=== PATIENT | female | born 1950 | race Caucasian/White ===

== ENCOUNTER 2019-08-28 15:06 | Emergency (ER) | payer MEDICARE ==
--- NOTE | 2019-08-28 16:07 | EDM.PDOC ---
ED HPI GENERAL MEDICAL PROBLEM - General Chief Complaint: Fever Stated Complaint: LOW BP Time Seen by Provider: 08/28/19 16:07 Source of Information: Reports: Patient History Limitations: Reports: Other (confusion, soft spoken and often does not understand question. provides history) - History of Present Illness INITIAL COMMENTS - FREE TEXT/NARRATIVE: Patient present to ER with for evaluation of low blood pressure. Patient in on oral blood pressure medications which she took today. has noted slight intermittent fevers over the last week. Patient has not had a cough or chest pain. Patient has had diarrhea recently. Patient has a history of chronic renal insufficiency and i followed by providers. Appetite has been decreased over the last week. Patient drinks diet Pepsi and very rare glass of wine on Holidays. Limited history available from and is fairly non verbal. denies Pain Score (Numeric/FACES): 0 - Related Data Allergies Allergy/AdvReac Type Severity Reaction Status Date / Time Penicillins Allergy Rash Verified 08/28/19 16:10 Home Meds: Home Meds Aspirin [Danielle Chewable] 162 mg PO DAILY 08/28/19 [History] Cholecalciferol (Vitamin D3) [Vitamin D3] 2,000 unit PO DAILY 08/28/19 [History] Famotidine 20 mg PO DAILY 08/28/19 [History] Levothyroxine [Synthroid] 50 mcg PO DAILY 08/28/19 [History] Losartan Potassium 1 tab PO DAILY 08/28/19 [History] Multivitamin with Minerals [Multivitamins with Minerals] 1 each PO DAILY 08/28/19 [History] atorvaSTATin Calcium [Atorvastatin Calcium] 1 tab PO BEDTIME 08/28/19 [History] carvediloL [Carvedilol] 1 tab PO BID 08/28/19 [History] Past Medical History HEENT History: Reports: None Cardiovascular History: Reports: Hypertension Respiratory History: Reports: None Gastrointestinal History: Reports: None Genitourinary History: Reports: None [employer] History: Reports: Musculoskeletal History: Reports: None Neurological History: Reports: CVA, Other (See Below) Other Neuro History: Two previous CVAs Psychiatric History: Reports: None Endocrine/Metabolic History: Reports: None Hematologic History: Reports: None Immunologic History: Reports: None Oncologic (Cancer) History: Reports: None Dermatologic History: Reports: None - Past Surgical History Head Surgeries/Procedures: Reports: None ED ROS GENERAL - Review of Systems Review Of Systems: Comprehensive ROS is negative, except as noted in HPI. ED EXAM, GENERAL - Physical Exam Exam: See Below Exam Limited By: Altered Mental Status (poor historian and limited verbal communications) General Appearance: Alert, WD/WN, Anxious, Mild Distress Eye Exam: Bilateral Eye: EOMI, Normal Inspection Ears: Hearing Loss (poor understanding and verbal response ) Nose: Normal Inspection Throat/Mouth: Normal Voice, No Airway Compromise, Other (dry mucus membrane) Neck: Normal Inspection, Supple, Non-Tender Respiratory/Chest: Lungs Clear, Normal Breath Sounds (poor air movement due to respiratory effort) Cardiovascular: Normal Peripheral Pulses (faint ), Regular Rate, Rhythm, No Murmur GI/Abdominal: Normal Bowel Sounds, Soft. No: Non-Tender (diffuse mild discomfort noted. No focal acute pain. ) (Female) Exam: Deferred Rectal (Female) Exam: Deferred Back Exam: CVA Tenderness (R), CVA Tenderness (L) (slight ) Extremities: No: Normal Capillary Refill Neurological: Alert, Oriented, No Motor/Sensory Deficits Psychiatric: Flat Affect Course - Vital Signs Last Recorded V/S: Last Vital Signs Temp 36.6 C 08/28/19 16:09 Pulse 61 08/28/19 16:09 Resp 18 08/28/19 16:09 BP 115/64 08/28/19 17:06 Pulse Ox 97 08/28/19 16:09 - Orders/Labs/Meds Orders: Active Orders 24 hr Category Date Time Status Cardiac Monitoring [RC] .As Directed Care 08/28/19 16:54 Active Peripheral IV Care [RC] . DIRECTED Care 08/28/19 16:55 Active CULTURE BLOOD [BC] Urgent Lab 08/28/19 17:10 Received CULTURE BLOOD [BC] Urgent Lab 08/28/19 17:15 Received CULTURE URINE [RM] Stat Lab 08/28/19 18:37 Received Sodium Chloride 0.9% [Normal Saline] 1,000 ml Med 08/28/19 17:00 Active IV ASDIRECTED Sodium Chloride 0.9% [Normal Saline] 1,000 ml Med 08/28/19 19:45 Active IV ASDIRECTED Sodium Chloride 0.9% [Saline Flush] Med 08/28/19 16:54 Active 10 ml FLUSH ASDIRECTED PRN Blood Culture x2 Reflex Set [OM.PC] Urgent Oth 08/28/19 16:54 Ordered Peripheral IV Insertion Adult [OM.PC] Urgent Oth 08/28/19 16:54 Ordered Medication Orders Sodium Chloride (Normal Saline) 1,000 mls @ 500 mls/hr IV ASDIRECTED SACHIN Last Admin: 08/28/19 17:20 Dose: 500 mls/hr Documented by: GRACIELA Sodium Chloride (Normal Saline) 1,000 mls @ 125 mls/hr IV ASDIRECTED SACHIN Last Admin: 08/28/19 19:37 Dose: 125 mls/hr Documented by: KENNEDY Sodium Chloride (Saline Flush) 10 ml FLUSH ASDIRECTED PRN PRN Reason: Keep Vein Open Last Admin: 08/28/19 19:22 Dose: 10 ml Documented by: DENILSON Labs: Laboratory Tests 08/28/19 08/28/19 08/28/19 Range/Units 17:10 17:10 17:10 WBC 6.6 (4.5-11.0) K/uL RBC 4.23 (3.30-5.50) M/uL Hgb 12.9 (12.0-15.0) g/dL Hct 38.5 (36.0-48.0) % MCV 91 (80-98) fL MCH 31 (27-31) pg MCHC 34 (32-36) % Plt Count 42 L (150-400) K/uL Add Manual Diff Yes Neutrophils % (Manual) 59 (36-66) % Band Neutrophils % 2 L (5-11) % Lymphocytes % (Manual) 22 L (24-44) % Monocytes % (Manual) 17 H (2-6) % Sodium 131 L (140-148) mmol/L Potassium 3.7 (3.6-5.2) mmol/L Chloride 94 L (100-108) mmol/L Carbon Dioxide 29 (21-32) mmol/L Anion Gap 11.7 (5.0-14.0) mmol/L BUN 63 H (7-18) mg/dL Creatinine 2.6 H (0.6-1.0) mg/dL Est Cr Clr Drug Dosing 14.25 mL/min Estimated GFR (MDRD) 18 L (>60) Glucose 111 H (74-106) mg/dL Lactic Acid 1.0 (0.4-2.0) mmol/L Calcium 8.9 (8.5-10.1) mg/dL Total Bilirubin 0.5 (0.2-1.0) mg/dL Direct Bilirubin 0.14 (0.0-0.2) mg/dL Indirect Bilirubin 0.36 AST 142 H (15-37) U/L ALT 51 (12-78) U/L Alkaline Phosphatase 57 (46-116) U/L Ammonia (11-32) mmol/L Lactate Dehydrogenase (82-234) U/L Total Protein 7.7 (6.4-8.2) g/dL Albumin 3.2 L (3.4-5.0) g/dL Globulin 4.5 H (2.3-3.5) g/dL Albumin/Globulin Ratio 0.7 L (1.2-2.2) Lipase 1351 H (73-393) U/L Urine Color (YELLOW) Urine Appearance (CLEAR) Urine pH (5.0-8.0) Ur Specific [place] (1.008-1.030) Urine Protein (NEGATIVE) mg/dL Urine Glucose (UA) (NEGATIVE) mg/dL Urine Ketones (NEGATIVE) mg/dL Urine Occult Blood (NEGATIVE) Urine Nitrite (NEGATIVE) Urine Bilirubin (NEGATIVE) Urine Urobilinogen (0.2-1.0) EU/dL Ur Leukocyte Esterase (NEGATIVE) Urine RBC (0-5) Urine WBC (0-5) Ur Epithelial Cells Amorphous Sediment Urine Bacteria Urine Mucus Urine Other Ethyl Alcohol mg/dL 08/28/19 08/28/19 08/28/19 Range/Units 17:10 17:10 17:59 WBC (4.5-11.0) K/uL RBC (3.30-5.50) M/uL Hgb (12.0-15.0) g/dL Hct (36.0-48.0) % MCV (80-98) fL MCH (27-31) pg MCHC (32-36) % Plt Count (150-400) K/uL Add Manual Diff Neutrophils % (Manual) (36-66) % Band Neutrophils % (5-11) % Lymphocytes % (Manual) (24-44) % Monocytes % (Manual) (2-6) % Sodium (140-148) mmol/L Potassium (3.6-5.2) mmol/L Chloride (100-108) mmol/L Carbon Dioxide (21-32) mmol/L Anion Gap (5.0-14.0) mmol/L BUN (7-18) mg/dL Creatinine (0.6-1.0) mg/dL Est Cr Clr Drug Dosing mL/min Estimated GFR (MDRD) (>60) Glucose (74-106) mg/dL Lactic Acid (0.4-2.0) mmol/L Calcium (8.5-10.1) mg/dL Total Bilirubin (0.2-1.0) mg/dL Direct Bilirubin (0.0-0.2) mg/dL Indirect Bilirubin AST (15-37) U/L ALT (12-78) U/L Alkaline Phosphatase (46-116) U/L Ammonia < 10 L (11-32) mmol/L Lactate Dehydrogenase 802 H (82-234) U/L Total Protein (6.4-8.2) g/dL Albumin (3.4-5.0) g/dL Globulin (2.3-3.5) g/dL Albumin/Globulin Ratio (1.2-2.2) Lipase (73-393) U/L Urine Color (YELLOW) Urine Appearance (CLEAR) Urine pH (5.0-8.0) Ur Specific [place] (1.008-1.030) Urine Protein (NEGATIVE) mg/dL Urine Glucose (UA) (NEGATIVE) mg/dL Urine Ketones (NEGATIVE) mg/dL Urine Occult Blood (NEGATIVE) Urine Nitrite (NEGATIVE) Urine Bilirubin (NEGATIVE) Urine Urobilinogen (0.2-1.0) EU/dL Ur Leukocyte Esterase (NEGATIVE) Urine RBC (0-5) Urine WBC (0-5) Ur Epithelial Cells Amorphous Sediment Urine Bacteria Urine Mucus Urine Other Ethyl Alcohol < 3 mg/dL 08/28/19 Range/Units 18:37 WBC (4.5-11.0) K/uL RBC (3.30-5.50) M/uL Hgb (12.0-15.0) g/dL Hct (36.0-48.0) % MCV (80-98) fL MCH (27-31) pg MCHC (32-36) % Plt Count (150-400) K/uL Add Manual Diff Neutrophils % (Manual) (36-66) % Band Neutrophils % (5-11) % Lymphocytes % (Manual) (24-44) % Monocytes % (Manual) (2-6) % Sodium (140-148) mmol/L Potassium (3.6-5.2) mmol/L Chloride (100-108) mmol/L Carbon Dioxide (21-32) mmol/L Anion Gap (5.0-14.0) mmol/L BUN (7-18) mg/dL Creatinine (0.6-1.0) mg/dL Est Cr Clr Drug Dosing mL/min Estimated GFR (MDRD) (>60) Glucose (74-106) mg/dL Lactic Acid (0.4-2.0) mmol/L Calcium (8.5-10.1) mg/dL Total Bilirubin (0.2-1.0) mg/dL Direct Bilirubin (0.0-0.2) mg/dL Indirect Bilirubin AST (15-37) U/L ALT (12-78) U/L Alkaline Phosphatase (46-116) U/L Ammonia (11-32) mmol/L Lactate Dehydrogenase (82-234) U/L Total Protein (6.4-8.2) g/dL Albumin (3.4-5.0) g/dL Globulin (2.3-3.5) g/dL Albumin/Globulin Ratio (1.2-2.2) Lipase (73-393) U/L Urine Color Yellow (YELLOW) Urine Appearance Slightly cloudy A (CLEAR) Urine pH 5.5 (5.0-8.0) Ur Specific [place] 1.020 (1.008-1.030) Urine Protein 100 H (NEGATIVE) mg/dL Urine Glucose (UA) Negative (NEGATIVE) mg/dL Urine Ketones Negative (NEGATIVE) mg/dL Urine Occult Blood Moderate H (NEGATIVE) Urine Nitrite Negative (NEGATIVE) Urine Bilirubin Negative (NEGATIVE) Urine Urobilinogen 0.2 (0.2-1.0) EU/dL Ur Leukocyte Esterase Trace H (NEGATIVE) Urine RBC 10-20 H (0-5) Urine WBC 5-10 H (0-5) Ur Epithelial Cells Moderate Amorphous Sediment Many Urine Bacteria Many Urine Mucus Moderate Urine Other See note Ethyl Alcohol mg/dL Meds: Medications Generic Name Dose Route Start Last Admin Trade Name Freq PRN Reason Stop Dose Admin Sodium Chloride 1,000 mls @ 500 mls/hr 08/28/19 17:00 08/28/19 17:20 Normal Saline IV 500 mls/hr ASDIRECTED SACHIN Administration Sodium Chloride 1,000 mls @ 125 mls/hr 08/28/19 19:45 08/28/19 19:37 Normal Saline IV 125 mls/hr ASDIRECTED SACHIN Administration Sodium Chloride 10 ml 08/28/19 16:54 08/28/19 19:22 Saline Flush FLUSH 10 ml ASDIRECTED PRN Administration Keep Vein Open - Re-Assessments/Exams Free Text/Narrative Re-Assessment/Exam: Discussed results regarding laboratory studies which show concern for possible pancreatitis which may be the cause of low grade intermittent fevers, nausea, decreased appetite, low blood pressure, diarrhea and vague abdominal pain. CT Abd/Pelvis ordered w/o IV contrast ordered due to poor renal function. Patient declined needing medication for nausea or pain at time of assessment. Daughter, whom is an RN, on 's cell phone and aware of ER visit evaluation and plan for further evaluation with CT scan. 08/28/19 18:[address] results with patient and which show not acute intraabdominal findings to explain symptoms. I believe patient has pancreatitis with test results and symptoms. Patient was offered admission to keep NPO, IVF and pain management bu patient and declined. Patient was offered OP pain medications and nausea medications for home use but declined. Discussed self/home care treatment for acute pancreatitis. Recommended clinic follow-up early next week with stool sample/studies recommended. and patient are welcome to return if symptoms worsen, new concerns or would like admission for IVF support and pain management. 08/28/19 19:58 Departure - Departure Time of Disposition: 20:04 Disposition: Home, Self-Care 01 Clinical Impression: Pancreatitis, acute - Discharge Information Instructions: Acute Pancreatitis, Chronic Pancreatitis Referrals: PCP,None [Primary Care Provider] - Forms: ED Department Discharge Additional Instructions: 1. CLEAR LIQUID DIET UNTIL SYMPTOMS RESOLVED/IMPROVED then BRAT Diet (Banana, Rice, Apple sauce, dry toast or plant crackers then ADVANCE TO BLAND DIET TOLERATED. 2. INCREASE FLUID INTAKE. 3. FOLLOW INFORMATION GIVEN. 4. SEE PCP IN 3-4 DAYS FOR RE-CHECK TO DISCUSS SYMPTOMS AND STOOL STUDY IF DIARRHEA CONTINUES> 5. Return for repeat evaluation if increase, changes, new or worsen symptoms. Ultrasound Abd RUQ may be recommended if continue symptoms or concerns THE DISCHARGE INSTRUCTIONS ARE INTENDED A COMPLEMENT TO AND NOT A REPLACEMENT FOR THE VERBAL INSTRUCTIONS THAT I HAVE PROVIDED YOU TODAY. AFTER GOING OVER THE PLAN OF CARE TONIGHT AND PROVIDING YOU WITH THE VERBAL INSTRUCTIONS AT DISCHARGE YOU HAVE HAD THE OPPORTUNITY TO ASK FURTHER QUESTIONS AND TO CLARIFY UNCERTAINTIES. THANK YOU FOR ALLOWING US TO ASSIST WITH YOUR MEDICAL CONCERNS AND NEEDS. Acute Pancreatitis: What is acute pancreatitis? Pancreatitis is a condition that occurs when the pancreas, an organ behind the stomach, becomes swollen and painful. The pancreas produces digestive enzymes and insulin. The digestive enzymes flow into the small intestine to help break down food. Insulin is released into the blood to control the level of sugar (glucose) in the blood. Pancreatitis can be acute or chronic. Acute pancreatitis occurs as one sudden episode. After acute pancreatitis the pancreas usually returns to its normal condition. Chronic pancreatitis means ongoing or repeated bouts of pancreatitis in which there is permanent damage to the pancreas. How does it occur? The causes of acute pancreatitis are not completely understood. About half of the people who have pancreatitis have gallstones. Gallstones can block the flow of pancreatic secretions into the intestines. Drinking too much alcohol can lead to pancreatitis. Less frequent causes are some medicines, stomach or duodenal ulcers, surgery, or injury, such as being hit in the stomach. Sometimes very high levels of blood fats (triglycerides) cause pancreatitis. What are the symptoms? The main symptom is severe pain in the middle of your upper abdomen. The pain: often occurs 12 to 24 hours after a large meal or heavy drinking spreads to your back and chest is steady and sharp gets worse when you move feels better when you sit or lean forward usually makes you vomit. Other symptoms are: fever bloating. In severe cases, you may have signs of shock, including: restlessness a fast heartbeat lightheadedness confusion a cold sweat. If you have abdominal pain and any of these signs of shock, get emergency care or call 911 right away. How is it diagnosed? Your health care provider will ask about your medical history, particularly about how much alcohol you drink and whether you have had gallstones. Your provider will ask about your symptoms and examine you. You may have the following tests: blood tests urine tests x-rays of your abdomen and chest ultrasound exam of the pancreas and gallbladder CT scan of the pancreas ERCP, which is a way of looking at your pancreas through a slim flexible tube called an endoscope, which is passed through your mouth and stomach to where your pancreas and intestines are connected. How is it treated? You will probably stay in the hospital. To rest your pancreas, you cannot eat or drink anything for a while. You will not start drinking or eating again until the abdominal pain stops. You will be given fluids through your vein (IV). A tube may be put through your nose down into your stomach to remove fluids and help prevent nausea, vomiting, and bloating. This is called nasogastric suction. You may have to stop taking some medicines you have been taking. A narcotic drug or other pain reliever will be prescribed for your abdominal pain. You may have other medicines as well. You will need to stay in bed and take it easy. When the pain stops, you can start drinking clear liquids and gradually pr ogress to eating a normal diet. If you have gallstones, they may be removed while you are in the hospital to prevent another attack of pancreatitis. Your health care provider may decide you can leave the hospital when you no longer have pain and are able to eat. Most people treated with nasogastric suction and IV fluids start feeling better in 1 to 3 days and go home in 5 to 10 days. More severe disease requires treatment in an intensive care unit (ICU) and a hospital stay of several weeks. How long do the effects last? Most people recover completely, especially if the disease is diagnosed early enough. Severe pancreatitis, however, can be life threatening. How can I take care of myself? Follow the instructions your health care provider gives you. This includes how you take any medicines he or she has prescribed. Don't take any other medicines, including nonprescription drugs, without asking your health care provider. Ask your provider if you need a special diet. Avoid drinking alcohol. How can I help prevent another attack of acute pancreatitis? Pancreatitis can recur and can become an ongoing problem. To help prevent another attack: Avoid drinking alcohol if you are advised to do so by your health care provider. Follow the diet your health care provider prescribes. Follow your provider's recommendations for keeping your blood fats at a normal level. Follow your provider's recommendations for physical activity. If gallstones caused the pancreatitis and they have not been removed, surgery to remove them may help prevent further attacks. Sepsis Event Note (ED) - Focused Exam Vital Signs: Vital Signs Temp Pulse Resp BP Pulse Ox 08/28/19 17:06 115/64 08/28/19 16:35 116/62 08/28/19 16:09 36.6 C 61 18 107/54 L 97 08/28/19 16:05 98/58 L 08/28/19 15:42 36.6 C 61 18 107/54 L 97 - My Orders Last 24 Hours: My Active Orders 08/28/19 16:54 Cardiac Monitoring [RC] .As Directed Sodium Chloride 0.9% [Saline Flush] 10 ml FLUSH ASDIRECTED PRN Blood Culture x2 Reflex Set [OM.PC] Urgent Peripheral IV Insertion Adult [OM.PC] Urgent 08/28/19 16:55 Peripheral IV Care [RC] . DIRECTED 08/28/19 17:00 Sodium Chloride 0.9% [Normal Saline] 1,000 ml IV ASDIRECTED 08/28/19 17:10 CULTURE BLOOD [BC] Urgent 08/28/19 17:15 CULTURE BLOOD [BC] Urgent 08/28/19 18:37 CULTURE URINE [RM] Stat 08/28/19 19:45 Sodium Chloride 0.9% [Normal Saline] 1,000 ml IV ASDIRECTED - Assessment/Plan Last 24 Hours: My Active Orders 08/28/19 16:54 Cardiac Monitoring [RC] .As Directed Sodium Chloride 0.9% [Saline Flush] 10 ml FLUSH ASDIRECTED PRN Blood Culture x2 Reflex Set [OM.PC] Urgent Peripheral IV Insertion Adult [OM.PC] Urgent 08/28/19 16:55 Peripheral IV Care [RC] . DIRECTED 08/28/19 17:00 Sodium Chloride 0.9% [Normal Saline] 1,000 ml IV ASDIRECTED 08/28/19 17:10 CULTURE BLOOD [BC] Urgent 08/28/19 17:15 CULTURE BLOOD [BC] Urgent 08/28/19 18:37 CULTURE URINE [RM] Stat 08/28/19 19:45 Sodium Chloride 0.9% [Normal Saline] 1,000 ml IV ASDIRECTED
[2019-08-28] MEDS ORDERED: Sodium Chloride 0.9% 10 ML Syringe FLUSH PRN (16:54)
[2019-08-28] MEDS ORDERED: Sodium Chloride 0.9% 1,000 ML IV SCH ×2 (17:00→19:45)
--- NOTE | 2019-08-28 19:38 | CRLCT ---
INDICATION: Abdominal pain and nausea with clinical question of pancreatitis COMPARISON: None TECHNIQUE: CT examination of the abdomen and pelvis was performed without intravenous contrast. Thin section axial images were obtained from the lung bases through the pubic symphysis. Oral contrast was not administered. Please note that all CT scans at this facility use dose modulation, iterative reconstruction, and/or weight-based dosing when appropriate to reduce radiation dose to as low as reasonably achievable. FINDINGS: LUNG BASES: No acute abnormality at the lung bases.Heart size normal with the lung bases. Small effusion LIVER/BILIARY SYSTEM:The upper abdomen is blurred by motion. The liver appears grossly normal. There is no biliary ductal dilatation. The gallbladder is not clearly visible on this study and probably surgically absent. However, the areas obscured by motion artifact. ADRENALS: Normal non-contrast appearance KIDNEYS, URETERS and BLADDER:Limited evaluation due to motion but no gross acute focal finding. The bladder as visualized appears normal SPLEEN:Limited by motion but no gross acute focal abnormality. PANCREAS: Again limited visualization but no obvious findings of pancreatitis. Correlate with appropriate serum finding RETROPERITONEUM and MESENTERY: There is no mass, adenopathy or aortic aneurysm. Atherosclerotic vascular calcification GASTROINTESTINAL SYSTEM: There is no evidence of diverticulitis, colitis, mechanical obstruction, or appendicitis. The small bowel as visualized appears normal.Mild fecal retention. Diverticulosis PELVIS: Myomatous uterus. OSSEOUS STRUCTURES and ABDOMINAL WALL: Demineralization and degenerative change. Nonacute superior endplate deformity of L1. no significant anterior abdominal wall defect OTHER: No free fluid or free air. IMPRESSION: Limited by motion. Within the limitations of the study, there is no definite acute focal finding. Please note that all CT scans at this facility use dose modulation, iterative reconstruction, and/or weight-based dosing when appropriate to reduce radiation dose to as low as reasonably achievable. Dictated by Arun Em MD @ Aug 28 2019 7:28PM Signed by Dr. Arun Em @ Aug 28 2019 7:36PM
== END 2019-08-28 20:27 | disposition home or self-care (01) ==
LOC: JP.ED 15:06
DX: K85.90 Acute pancreatitis without necrosis or infection, unspecified (principal); Z79.899 Other long term (current) drug therapy; I10 Essential (primary) hypertension; Z86.73 Personal history of transient ischemic attack (TIA), and cerebral infarction without residual deficits; Z88.0 Allergy status to penicillin; Z79.82 Long term (current) use of aspirin
CPT/HCPCS: 36415; 74176; 80048; 80076; 80307; 81001; 82140; 83605; 83615; 83690; 85025; 87040; 87086; 96360; 96361; 99284; J7030

== ENCOUNTER 2019-10-09 12:12 | Emergency (ER) | payer MEDICARE ==
--- NOTE | 2019-10-09 13:18 | EDM.PDOC ---
ED HPI GENERAL MEDICAL PROBLEM - General Chief Complaint: General Stated Complaint: SENT FROM CLINIC Time Seen by Provider: 10/09/19 12:55 Source of Information: Reports: Patient, Family, RN Notes Reviewed History Limitations: Reports: Other (History of ischemic R MCA stroke, speech slow. ) - History of Present Illness INITIAL COMMENTS - FREE TEXT/NARRATIVE: Mary Ann presents today with complaints of low blood pressure reading at home. Recent lab work in the clinic showed decline in Hgb. Pending B12, iron studies. concern for acute bleed with drop of Hgb. Patient has complete a course of doxycycline for lymes disease of which she states she had a poor appetite the past 4 weeks with antibiotic. Mary Ann denies fever, chills, SOB, chest pain, palpitations, dizziness, headache, nausea, vomiting, change in bowel/bladder, black or bloody stools. Patient denies any symptoms mentioned. - Related Data Allergies Allergy/AdvReac Type Severity Reaction Status Date / Time Penicillins Allergy Rash Verified 10/09/19 12:27 Home Meds: Home Meds Aspirin [Danielle Chewable] 162 mg PO DAILY 08/28/19 [History] Cholecalciferol (Vitamin D3) [Vitamin D3] 2,000 unit PO DAILY 08/28/19 [History] Famotidine 20 mg PO DAILY 08/28/19 [History] Levothyroxine [Synthroid] 50 mcg PO DAILY 08/28/19 [History] Losartan Potassium 25 mg PO DAILY 08/28/19 [History] Multivitamin with Minerals [Multivitamins with Minerals] 1 each PO DAILY 08/28/19 [History] atorvaSTATin Calcium [Atorvastatin Calcium] 1 tab PO BEDTIME 08/28/19 [History] carvediloL [Carvedilol] 3.125 mg PO BID 08/28/19 [History] Omeprazole 20 mg PO DAILY 10/09/19 [History] Past Medical History HEENT History: Reports: None Cardiovascular History: Reports: Hypertension Respiratory History: Reports: None Gastrointestinal History: Reports: None Genitourinary History: Reports: Other (See Below) Other Genitourinary History: unable to say what her kidney problems are, but goe s to [facility] for them [employer] History: Reports: Musculoskeletal History: Reports: None Other Musculoskeletal History: r knee Neurological History: Reports: CVA, Other (See Below) Other Neuro History: Three previous CVAs last one was 2017 Psychiatric History: Reports: None Endocrine/Metabolic History: Reports: None Hematologic History: Reports: None Immunologic History: Reports: None Oncologic (Cancer) History: Reports: None Dermatologic History: Reports: None - Infectious Disease History Infectious Disease History: Reports: Chicken Pox, Measles, Mumps, Other (See Below) Other Infectious Disease History: Mild polio - Past Surgical History Head Surgeries/Procedures: Reports: None GI Surgical History: Reports: Appendectomy Social & Family History - Family History Family Medical History: Noncontributory - Tobacco Use Smoking Status *Q: Never Smoker - Caffeine Use Caffeine Use: Reports: Soda - Recreational Drug Use Recreational Drug Use: No ED ROS GENERAL - Review of Systems Review Of Systems: See Below Constitutional: Reports: No Symptoms HEENT: Reports: No Symptoms Respiratory: Reports: No Symptoms Cardiovascular: Reports: No Symptoms Endocrine: Reports: No Symptoms GI/Abdominal: Reports: No Symptoms : Reports: No Symptoms Musculoskeletal: Reports: No Symptoms Skin: Reports: No Symptoms Neurological: Reports: No Symptoms Psychiatric: Reports: No Symptoms Hematologic/Lymphatic: Reports: No Symptoms Immunologic: Reports: No Symptoms ED EXAM, GENERAL - Physical Exam Exam: See Below Exam Limited By: Other (History if CVA, speech slow, clear) General Appearance: Alert, WD/WN, No Apparent Distress Eye Exam: Bilateral Eye: Normal Inspection, PERRL Ears: Normal External Exam, Normal Canal, Hearing Grossly Normal, Normal TMs Nose: Normal Inspection, Normal Mucosa, No Blood Throat/Mouth: Normal Inspection, Normal Lips, Normal Gums, Normal Oropharynx, Normal Voice, No Airway Compromise Head: Atraumatic, Normocephalic Neck: Normal Inspection, Supple, Non-Tender, Full Range of Motion. No: Lymphadenopathy (R), Lymphadenopathy (L) Respiratory/Chest: No Respiratory Distress, Lungs Clear, Normal Breath Sounds, No Accessory Muscle Use, Chest Non-Tender. No: Crackles, Rales, Rhonchi, Wheezing Cardiovascular: Normal Peripheral Pulses, Regular Rate, Rhythm, No Edema, No Gallop, No Murmur, No Rub Peripheral Pulses: 2+: Radial (L), Radial (R) GI/Abdominal: Normal Bowel Sounds, Soft, Non-Tender, No Organomegaly, No Distention, No Mass, Pelvis Stable. No: Guarding, Rigid, Rebound Back Exam: Normal Inspection, Full Range of Motion. No: CVA Tenderness (R), CVA Tenderness (L) Extremities: Normal Inspection, Normal Range of Motion, Non-Tender, No Pedal Edema, Normal Capillary Refill Neurological: Alert, Oriented, CN II-XII Intact, Normal Gait, Normal Reflexes, No Motor/Sensory Deficits Psychiatric: Normal Affect, Normal Mood Skin Exam: Warm, Dry, Intact, Normal Color, No Rash Lymphatic: No Adenopathy Course - Vital Signs Last Recorded V/S: Last Vital Signs Temp 36.4 C 10/09/19 12:20 Pulse 69 10/09/19 12:20 Resp 13 10/09/19 12:20 BP 132/57 L 10/09/19 12:20 Pulse Ox 98 10/09/19 12:20 Orthostatic Blood Pressure [ 112/61 laying] Orthostatic Blood Pressure [ 115/61 Standing] Orthostatic Blood Pressure [ 119/65 Sitting] - Orders/Labs/Meds Labs: Laboratory Tests 10/09/19 Range/Units 12:45 Urine Color Yellow (YELLOW) Urine Appearance Clear (CLEAR) Urine pH 6.0 (5.0-8.0) Ur Specific [place] 1.010 (1.008-1.030) Urine Protein Negative (NEGATIVE) mg/dL Urine Glucose (UA) Negative (NEGATIVE) mg/dL Urine Ketones Negative (NEGATIVE) mg/dL Urine Occult Blood Negative (NEGATIVE) Urine Nitrite Negative (NEGATIVE) Urine Bilirubin Negative (NEGATIVE) Urine Urobilinogen 0.2 (0.2-1.0) EU/dL Ur Leukocyte Esterase Negative (NEGATIVE) Urine RBC Not seen (0-5) Urine WBC Not seen (0-5) Ur Epithelial Cells Rare Amorphous Sediment Rare Urine Bacteria Rare Urine Mucus Not seen Patient lab work reviewed. Patient assessment, vital signs discussed with her provider RUBÉN Larose. Patient has lab work pending for iron studies. We will provide patient with supplies to bring in stool specimen. Patient will make appointment with [facility]achel[facility] [place] Saturday or Saturday for follow up. Departure - Departure Time of Disposition: 13:20 Disposition: Home, Self-Care 01 Condition: Good Clinical Impression: Anemia - Discharge Information *PRESCRIPTION DRUG MONITORING PROGRAM REVIEWED*: Not Applicable *COPY OF PRESCRIPTION DRUG MONITORING REPORT IN PATIENT FADI: Not Applicable Instructions: Anemia Referrals: PCP,None [Primary Care Provider] - Forms: ED Department Discharge Additional Instructions: Mary Ann has been evaluated for low blood pressure and Hgb of 9.3 which had a recent drop from 11.9 09/23/2019. Urine shows no sign of infection. Recent completion of doxycycline for lymes disease. Mary Ann has not been eating well for the last 4 months with a decreased appetite most likely due to antibiotic use/lymes disease. Patient is advised to report to clinic for pending lab work for anemia. Bring in stool sample. Make a clinic appointment for next Saturday or Saturday to follow up on labs. May need a colonoscopy. Return to the emergency room for any worsening, issues or concerns. Sepsis Event Note (ED) - Evaluation Sepsis Screening Result: No Definite Risk - Focused Exam Vital Signs: Vital Signs Temp Pulse Resp BP Pulse Ox 10/09/19 12:20 36.4 C 69 13 132/57 L 98 - Assessment/Plan Assessment:: Anemia Plan: [facility] [place] [facility] will follow up with patient Saturday/Saturday next week. Patient has been evaluated for low blood pressure and Hgb of 9.3 which had a recent drop from 11.9 09/23/2019. Urine shows no sign of infection. Recent completion of doxycycline for lymes disease. Mary Ann has not been eating well for the last 4 months with a decreased appetite most likely due to antibiotic use/lymes disease. Use of husbands blood pressure cuff/machine at home. Cuff may not fit patient well. Patient advised to bring cuff and machine in to clinic for check. Patient is advised to report to clinic for pending lab work for anemia. Bring in stool sample. Make a clinic appointment for next Saturday or Saturday to follow up on labs. May need a colonoscopy. Return to the emergency room for any worsening, issues or concerns.
== END 2019-10-09 13:30 | disposition home or self-care (01) ==
LOC: JP.ED 12:12
DX: D64.9 Anemia, unspecified (principal); I10 Essential (primary) hypertension; Z86.73 Personal history of transient ischemic attack (TIA), and cerebral infarction without residual deficits; Z90.49 Acquired absence of other specified parts of digestive tract; Z79.899 Other long term (current) drug therapy
CPT/HCPCS: 81001; 99283; 99284